=== PATIENT | female | born 1970 | race African-American/Black ===

== ENCOUNTER 2020-03-14 03:13 | Inpatient (IN) | payer MEDICARE ==
[~2020-03-14] VITALS: Ht 160 cm; Wt 86.6 kg
--- NOTE | 2020-03-14 03:20 | NUR ---
PT BIBRA C/O MIDEPIGASTRIC PAIN X1 DAY. PT ALSO C/O NAUSEA AND VOMITTING, CONSTANTLY DRY HEAVING. PT AAOX4, APPEARS UNCOMFORTABLE. RESPIRATIONS EVEN AND UNLABORED. SKIN WARM AND INTACT. NO ACUTE DISTRESS NOTED AT THIS TIME. PLACED IN GOWN AND ON MONITOR, WILL CONTINUE TO MONITOR
[2020-03-14] MEDS ORDERED: IV NS 0.9% 1,000 ML BAG IV ONE (03:30)
[2020-03-14] MEDS ORDERED: ONDANSETRON HCL/PF 4 MG/2 ML VIAL ONE ×2 (03:30→04:34)
[2020-03-14] MEDS ORDERED: MORPHINE SULFATE INJ 4 MG/ML DISP.SYRIN ONE (03:30)
[2020-03-14] MEDS ORDERED: ONDANSETRON HCL/PF 4 MG/2 ML VIAL IVP ONE (03:30)
[2020-03-14] MEDS ORDERED: MORPHINE SULFATE INJ 2 MG/ML DISP.SYRIN IV ONE (03:30)
--- NOTE | 2020-03-14 03:35 | NUR ---
IV INITIATED RAC 18G. LABS DRAWN FROM SITE. WINDOW CLERK AT BEDSIDE FOR COLLECTION. IV INTACT AND PATENT, PLACED ON SALINE LOCK
[2020-03-14 04:01] LABS: BASOPHILS # (AUTO) 0.1 /CMM (0.0-0.2); BASOPHILS % (AUTO) 0.4 % (0.0-2.0); EOSINOPHILS % (AUTO) 0.1 % (0.0-6.0); HEMATOCRIT 39 % (33-45); LYMPHOCYTES % (AUTO) 4.6 % (20.0-44.0); MEAN CORPUSCULAR HGB CONC 34 g/dl (31.0-36.0); MEAN CORPUSCULAR VOLUME 95 fL (82-100); MONOCYTES # (AUTO) 0.3 /CMM (0.1-1.30); MONOCYTES % (AUTO) 1.3 % (2.0-12.0); NEUTROPHILS # (AUTO) 20.6 /CMM (1.8-8.9); NEUTROPHILS % (AUTO) 93.6 % (43.0-81.0); PLATELET COUNT (AUTO) 293 /CMM (150-450); RED BLOOD CELL COUNT(AUTO) 4.03 MIL/uL (4.0-5.2)
[2020-03-14 04:06] LABS: CALCIUM, SERUM 9.5 mg/dL (8.5-10.1); CARBON DIOXIDE 23 mmol/L (21-32); CHLORIDE 101 mmol/L (98-107); GLUCOSE 152 mg/dL (74-106); POTASSIUM 3.4 mmol/L (3.5-5.1); SODIUM SERUM 141 mmol/L (136-145); UREA NITROGEN, BLOOD 13 mg/dL (7-18)
--- NOTE | 2020-03-14 04:06 | NUR ---
PT UNABLE TO PROVIDE URINE SAMPLE AT THIS TIME. MD MIDDLETON
[2020-03-14 04:12] LABS: ALANINE AMINOTRANSFERASE 23 U/L (12-78); ALKALINE PHOSPHATASE 59 U/L (46-116); ASPARTATE AMINOTRANSFERASE 18 U/L (15-37); BILIRUBIN,DIRECT 0.2 mg/dL (0.0-0.2); BILIRUBIN,TOTAL 0.6 mg/dL (0.2-1.0); TOTAL PROTEIN, SERUM 9.1 g/dL (6.4-8.2)
--- NOTE | 2020-03-14 04:17 | NUR ---
ULTRASOUND AT BEDSIDE
[2020-03-14 04:22] LABS: ALBUMIN 4.6 g/dL (3.4-5.0); LIPASE 29 U/L (73-393)
[2020-03-14] MEDS ORDERED: DICYCLOMINE HCL INJ 20 MG/2 ML AMPUL IM ONE ×2 (04:34→05:00)
--- NOTE | 2020-03-14 04:40 | NUR ---
PT UNABLE TO PROVIDE URINE SAMPLE AT THIS TIME. AWARE. PT SIGNED WAIVER, PLACED IN PT CHART
--- NOTE | 2020-03-14 04:43 | NUR ---
PT BROUGHT BY RADIOLOGY TO CT
[2020-03-14] MEDS ORDERED: ONDANSETRON HCL/PF 4 MG/2 ML VIAL IV ONE (05:00)
--- NOTE | 2020-03-14 05:06 | NUR ---
URINE COLLECTED. CALLED LAB FOR CLEANING AND WASHING EQUIPMENT OPERATOR
[2020-03-14] MEDS ORDERED: METOCLOPRAMIDE HCL 10 MG/2 ML VIAL ONE (05:29)
[2020-03-14] MEDS ORDERED: METOCLOPRAMIDE HCL 10 MG/2 ML VIAL IV ONE (05:30)
[2020-03-14 05:38] LABS: APPEARANCE,URINE CLEAR (CLEAR); BILIRUBIN,URINE NEGATIVE (NEGATIVE); BLOOD, URINE LARGE Ery/uL (NEGATIVE); COLOR,URINE YELLOW (YELLOW); KETONES,URINE 40 (NEGATIVE); LEUKOCYTE ESTERASE ,URINE NEGATIVE (NEGATIVE); NITRITE, URINE NEGATIVE (NEGATIVE); PH,URINE 5.5 (5.0-8.0); PROTEIN,URINE 30 mg/dl (NEGATIVE); UGLUCOSE NEGATIVE (NEGATIVE); UROBILINOGEN,URINE 0.2 EU/dL (0.2)
[2020-03-14] MEDS ORDERED: IV D5/0.45 NACL 1,000 ML IV PRN (05:43)
--- NOTE | 2020-03-14 05:43 | NUR ---
COVID SWAB COLLECTED AND SENT TO LAB
[2020-03-14] MEDS ORDERED: Z GUARD REMEDY 2 OZ OINT TP PRN (06:00)
[2020-03-14] MEDS ORDERED: ACETAMINOPHEN 650 MG/SUPP.RECT RC PRN (06:00)
[2020-03-14] MEDS ORDERED: ONDANSETRON HCL/PF 4 MG/2 ML VIAL IVP PRN (06:00)
[2020-03-14 06:06] LABS: MUCUS,URINE Moderate /LPF (None Seen); SQUAMOUS EPITHELIAL CELL,UR Moderate /HPF (None Seen); WBC,URINE 0-2 /HPF (0-3)
[2020-03-14 06:07] LABS: BACTERIA,URINE Rare /HPF (None Seen)
--- NOTE | 2020-03-14 06:30 | NUR ---
REPORT GIVEN TO JAUN HARTMAN FOR [facility]
--- NOTE | 2020-03-14 06:54 | NUR ---
[facility]
[2020-03-14 07:15] VITALS: BP 138/75
[2020-03-14] MEDS: POTASSIUM CL. PREMIX PERIPHER. 50 ML IV SCH ×2 (07:45→09:37)
--- NOTE | 2020-03-14 07:50 | NUR ---
MS RN ADMITTING NOTES PATIENT ADMITTED TO UNIT VIA [facility] @ 0700 ACCOMPANIED BY Keenan LAUGHLIN. PT ABLE TO WALKED FROM [facility] TO HER BED. PT IS A/O X 4. ABLE TO MAKE NEEDS KNOWN, VERBALIZED THAT ABDOMINAL PAIN AT THIS TIME IS TOLERABLE. STILL FEELING WITH MILD NAUSEA BUT SHE SAID THAT SHE DOESN'T NEED MEDICATION AT THIS TIME. PT NPO PER MD ORDER. PT ORIENTED TO STAFF AND ROOM. V/S TAKEN AND RECORDED. ON ROOM AIR, BREATHING EVEN AND UNLABORED. PHYSICAL ASSESSMENT DONE. ABDOMEN SOFT, NON DISTENDED WITH + BOWEL SOUNDS, LUNGS CLEAR ON AUSCULTATION. SKIN IS INTACT. ROM ON FOUR EXTREMITIES INTACT. IV ACCESS NOTED ON RAC INTACT, PATENT AND FLUSHES WELL, IVF OF D5 1/2 NS AT 100ML/HR STARTED. BED PLACED IN LOWEST LOCKED POSITION W/ SR UP X2. CALL LIGHT PLACED WITHIN EASY REACH OF PT. WILL CONTINUE TO MONITOR PT ACCORDINGLY.
[2020-03-14 08:00] VITALS: BP 142/75
[2020-03-14] MEDS ORDERED: CHOL200010 MT (08:19)
[2020-03-14] MEDS ORDERED: ALBU90AE INH (08:19)
[2020-03-14] MEDS ORDERED: GLUC100017 PO (08:19)
[2020-03-14] MEDS ORDERED: AMOX1TAB16 MT (08:19)
[2020-03-14] MEDS ORDERED: LATA2.5D7 EACHEYE (08:19)
[2020-03-14] MEDS ORDERED: LEVO100T9 MT (08:19)
[2020-03-14] MEDS ORDERED: GABA300C PO (08:19)
[2020-03-14] MEDS ORDERED: HYDR-500 MT (08:19)
[2020-03-14] MEDS ORDERED: DICL100G34 TP (08:19)
[2020-03-14] MEDS ORDERED: PANTOPRAZOLE 40 MG VIAL IV SCH (09:00)
--- NOTE | 2020-03-14 09:53 | NUR ---
RN NOTES PATIENT W/ COMPLAINT OF NAUSEA BUT NO VOMITING. REQUESTED FOR MEDICATION FOR NAUSEA. ZOFRAN IV GIVEN TO PATIENT.
--- NOTE | 2020-03-14 12:43 | NUR ---
RN NOTES PT NOTED WITH LOW LEVEL POTASSIUM 3.4 TODAY, ADMINISTERED 10MEQ IV X2 DOSES ORDERED. WILL CONTINUE TO MONITOR.
[2020-03-14] MEDS ORDERED: PANT40TA2 PO (14:13)
[2020-03-14 16:00] VITALS: BP 114/69
--- NOTE | 2020-03-14 17:35 | NUR ---
RN DISCHARGED NOTES PT DISCHARGED HOME IN STABLE CONDITION. A/O X4, SAME ABLE TO MAKE NEEDS KNOWN. AMBULATORY WITH STEADY GAIT. ABLE TO TOLERATE CLEAR LIQUIDS GIVEN TO HER WITH NO C/O ABDOMINAL PAIN AND N/V. V/S TAKEN , STABLE AND RECORDED. SKIN IS INTACT. ALL BELONGINGS ACCOUNTED FOR AND FORM SIGNED. IV ACCESS REMOVED WITH NO BLEEDING NOTED THEN APPLIED DRY DRESSING AT SITE. NAME ARMBAND REMOVED. HEALTH TEACHINGS/DISCHARGED INSTRUCTIONS GIVEN TO PT AND SHE VERBALIZED UNDERSTANDING. PRESCRIPTION OF ORAL PROTONIX TAB HANDED TO PT. PT LEFT UNIT @ 1725 VIA WHEELCHAIR ACCOMPANIED BY ME TO THE LOBBY. DAUGHTER SILVESTRE IN THE LOBBY TO TAKE PT HOME. MD AND CHARGE NURSE AWARE OF DISCHARGE.
== END 2020-03-14 17:25 | disposition home or self-care (01) | DRG 918 ==
LOC: ER 03:18 → MED 06:43
DX: T61.771A Other fish poisoning, accidental (unintentional), initial encounter (principal); E87.6 Hypokalemia; K21.9 Gastro-esophageal reflux disease without esophagitis; E03.9 Hypothyroidism, unspecified; Z90.49 Acquired absence of other specified parts of digestive tract; D72.829 Elevated white blood cell count, unspecified; Y92.009 Unspecified place in unspecified non-institutional (private) residence as the place of occurrence of the external cause
CPT/HCPCS: 36415; 71045-TC; 76705-TC; 80048-TC; 80076-TC; 81000-TC; 83690-TC; 84484-TC; 84703-TC; 85025-TC; 85730-TC; 87081-TC; C9113; C9803-CS; G0378; J0500; J2270; J2405; J2765; J3480; J3490; J7030

== ENCOUNTER 2020-12-11 09:39 | Emergency (ER) | payer MEDICARE ==
[~2020-12-11] VITALS: Ht 160 cm; Wt 86.2 kg
[~2020-12-11 09:39] MED LIST: ALBU90AE INH; CHOL200010 MT; GABA300C PO; GLUC100017 PO; LATA2.5D15 EACHEYE; LEVO100T9 MT; PANT40TA2 PO
[2020-12-11 10:37] LABS: BASOPHILS # (AUTO) 0.1 /CMM (0.0-0.2); BASOPHILS % (AUTO) 0.4 % (0.0-2.0); EOSINOPHILS % (AUTO) 0.1 % (0.0-6.0); HEMATOCRIT 40 % (33-45); HEMOGLOBIN 13.5 g/dL (11.5-14.8); LYMPHOCYTES # (AUTO) 1.6 /CMM (0.8-4.8); MEAN CORPUSCULAR HGB CONC 33 g/dl (31.0-36.0); MEAN CORPUSCULAR VOLUME 95 fL (82-100); MONOCYTES # (AUTO) 0.5 /CMM (0.1-1.30); MONOCYTES % (AUTO) 2.9 % (2.0-12.0); NEUTROPHILS # (AUTO) 13.7 /CMM (1.8-8.9); NEUTROPHILS % (AUTO) 86.6 % (43.0-81.0); PLATELET COUNT (AUTO) 298 /CMM (150-450); RED BLOOD CELL COUNT(AUTO) 4.27 MIL/uL (4.0-5.2); WHITE BLOOD COUNT (AUTO) 15.9 K/uL (4.3-11.0)
--- NOTE | 2020-12-11 10:39 | NUR ---
50 years old female alert, oriented x4 presents to er by ambulance with nausea, vomiting lab drawn urine collected result pending.
[2020-12-11 10:44] LABS: BILIRUBIN,URINE MODERATE (NEGATIVE); COLOR,URINE YELLOW (YELLOW); LEUKOCYTE ESTERASE ,URINE Negative (NEGATIVE); NITRITE, URINE Negative (NEGATIVE); PH,URINE 5.5 (5.0-8.0); PROTEIN,URINE >=300 mg/dl (NEGATIVE); UGLUCOSE Negative (NEGATIVE); UROBILINOGEN,URINE 0.2 EU/dL (0.2)
[2020-12-11 10:44] LABS: CALCIUM, SERUM 9.8 mg/dL (8.5-10.1); CARBON DIOXIDE 24 mmol/L (21-32); CHLORIDE 101 mmol/L (98-107); CREATININE 0.9 mg/dL (0.6-1.3); GLUCOSE 145 mg/dL (74-106); POTASSIUM 3.3 mmol/L (3.5-5.1); SODIUM SERUM 139 mmol/L (136-145); UREA NITROGEN, BLOOD 12 mg/dL (7-18)
[2020-12-11 10:50] LABS: ALANINE AMINOTRANSFERASE 21 U/L (12-78); ALBUMIN 4.7 g/dL (3.4-5.0); ALKALINE PHOSPHATASE 68 U/L (46-116); ASPARTATE AMINOTRANSFERASE 22 U/L (15-37); BILIRUBIN,DIRECT 0.2 mg/dL (0.0-0.2); BILIRUBIN,TOTAL 0.5 mg/dL (0.2-1.0); LIPASE 39 U/L (73-393); TOTAL PROTEIN, SERUM 9.4 g/dL (6.4-8.2)
[2020-12-11] MEDS ORDERED: ONDANSETRON HCL/PF 4 MG/2 ML VIAL ONE (10:58)
[2020-12-11 10:59] LABS: BACTERIA,URINE Moderate /HPF (None Seen); SQUAMOUS EPITHELIAL CELL,UR Moderate /HPF (None Seen)
--- NOTE | 2020-12-11 11:16 | NUR ---
patient went to CT.
[2020-12-11] MEDS ORDERED: MORPHINE SULFATE INJ 4 MG/ML DISP.SYRIN ONE (11:24)
[2020-12-11] MEDS ORDERED: ONDANSETRON HCL/PF - ER 4 MG/2 ML VIAL IV ONE (11:30)
[2020-12-11] MEDS ORDERED: MORPHINE SULFATE INJ 2 MG/ML DISP.SYRIN IV ONE (11:30)
--- NOTE | 2020-12-11 12:50 | NUR ---
PO challenge given tolerated well.
[2020-12-11] MEDS ORDERED: ONDA4TAB11 PO (13:17)
[2020-12-11 13:33] VITALS: BP 132/80
--- NOTE | 2020-12-11 13:34 | NUR ---
condition stable d/c home with instructions after care reviewed with patient she verbalizes understanding left er ambulatory with steady gait denies abdominal pain nausea/vomiting.ER provider talked to patient prior to d/c.
== END 2020-12-11 13:36 | disposition home or self-care (01) ==
LOC: ER 09:42
DX: R11.10 Vomiting, unspecified (principal); N83.202 Unspecified ovarian cyst, left side; N83.201 Unspecified ovarian cyst, right side; E03.9 Hypothyroidism, unspecified; Z88.5 Allergy status to narcotic agent; Z79.899 Other long term (current) drug therapy
CPT/HCPCS: 36415; 74176; 80048; 80076; 81001; 83690; 84484; 85025; 87086; 93005; 96374; 96375; 99285; J2270; J2405 ×2; J7030

== ENCOUNTER → 2022-06-15 | Emergency (ER) | payer MEDICARE ==
[~2022-06-15] VITALS: Ht 160 cm; Wt 75.7 kg
[~2022-06-15] MED LIST changes: +IOHEXOL-300 100 ML VIAL IV ONE; +IV NS 0.9% 250 ML IV ONE; +ONDA4TAB11 PO
--- NOTE | 2022-06-15 09:30 | NUR ---
PHELBOTOMIST AT BEDSIDE
[2022-06-15 09:57] LABS: CALCIUM, SERUM 8.4 mg/dL (8.5-10.1); CREATININE 0.9 mg/dL (0.6-1.3); POTASSIUM 3.8 mmol/L (3.5-5.1)
--- NOTE | 2022-06-15 09:59 | NUR ---
C/O BRIGHT BLODDY STOOL X 1 WEEK, DENIES AB PAIN AND N/V. PT AMBULATED TO BED WITH STEADY GAIT, AAO X4, PLACED IN BED AND MONITOR. KEPT COMFORTABLE, AWAITING MD ORDERS.
[2022-06-15 10:03] LABS: BASOPHILS % (AUTO) 0.3 % (0.0-2.0); EOSINOPHILS % (AUTO) 0.2 % (0.0-6.0); HEMATOCRIT 36 % (33-45); HEMOGLOBIN 12.1 g/dL (11.5-14.8); LYMPHOCYTES # (AUTO) 1.8 K/uL (0.8-4.8); MEAN CORPUSCULAR HGB CONC 33 g/dl (31.0-36.0); MEAN CORPUSCULAR VOLUME 97 fL (82-100); MONOCYTES # (AUTO) 0.8 K/uL (0.1-1.30); MONOCYTES % (AUTO) 9.2 % (2.0-12.0); NEUTROPHILS # (AUTO) 6.2 K/uL (1.8-8.9); NEUTROPHILS % (AUTO) 70.3 % (43.0-81.0); PLATELET COUNT (AUTO) 205 K/uL (150-450); RED BLOOD CELL COUNT(AUTO) 3.74 MIL/uL (4.0-5.2); WHITE BLOOD COUNT (AUTO) 8.8 K/uL (4.3-11.0)
[2022-06-15 10:09] LABS: BILIRUBIN,URINE NEGATIVE (NEGATIVE); COLOR,URINE YELLOW (YELLOW); LEUKOCYTE ESTERASE ,URINE NEGATIVE (NEGATIVE); NITRITE, URINE NEGATIVE (NEGATIVE); PROTEIN,URINE NEGATIVE (NEGATIVE); UGLUCOSE NEGATIVE (NEGATIVE); UROBILINOGEN,URINE 0.2 EU/dL (0.2)
[2022-06-15 10:11] LABS: ALBUMIN 3.7 g/dL (3.4-5.0); BILIRUBIN,DIRECT 0.1 mg/dL (0.0-0.2); BILIRUBIN,TOTAL 0.2 mg/dL (0.2-1.0); TOTAL PROTEIN, SERUM 7.2 g/dL (6.4-8.2)
[2022-06-15 10:42] LABS: BACTERIA,URINE None seen /HPF (None Seen); SQUAMOUS EPITHELIAL CELL,UR None Seen /HPF (None Seen); WBC,URINE NONE SEEN /HPF (0-3)
--- NOTE | 2022-06-15 10:45 | NUR ---
established iv line right ac 20g
--- NOTE | 2022-06-15 12:17 | NUR ---
Patient discharged to home in stable condition. Written and verbal after care instructions given. Patient verbalizes understanding of instruction.
--- NOTE | 2022-06-15 12:17 | NUR ---
IV removed. Catheter intact and site benign. Pressure and 4x4 applied to site. No bleeding noted.
[2022-06-15 12:18] VITALS: BP 133/80
== END | disposition home or self-care (01) ==
LOC: ER 09:07
DX: K57.30 Diverticulosis of large intestine without perforation or abscess without bleeding (principal); K21.9 Gastro-esophageal reflux disease without esophagitis; E03.9 Hypothyroidism, unspecified; Z88.5 Allergy status to narcotic agent; Z60.2 Problems related to living alone
CPT/HCPCS: 99285; 74177; 99406; 85025; 80048; 83690; 80076; 81001; 36415; J7050; Q9967

== ENCOUNTER 2022-08-29 21:17 | Emergency (ER) | payer BC, OTHER ==
[~2022-08-29] VITALS: Ht 160 cm; Wt 75.7 kg
[~2022-08-29 21:17] MED LIST changes: -IOHEXOL-300 100 ML VIAL IV ONE; -IV NS 0.9% 250 ML IV ONE
--- NOTE | 2022-08-29 21:51 | NUR ---
[id number] for N/V/D x few hours. on amoxicillin for sinusitis. placed in bed 6 on monitor . awaiting for jeri clales
--- NOTE | 2022-08-29 22:00 | NUR ---
IV GIAN G20 INSERTED ON LEFT AC. BLOOD DRAWN AND SENT TO LAB
[2022-08-29] MEDS ORDERED: ONDANSETRON HCL/PF 4 MG/2 ML VIAL ONE (22:07)
[2022-08-29] MEDS ORDERED: FAMOTIDINE/PF INJ 20 MG/2 ML VIAL IV ONE ×2 (22:07→22:30)
[2022-08-29] MEDS ORDERED: MORPHINE SULFATE INJ 4 MG/ML DISP.SYRIN ONE (22:12)
[2022-08-29 22:18] LABS: BASOPHILS % (AUTO) 0.1 % (0.0-2.0); EOSINOPHILS % (AUTO) 0.1 % (0.0-6.0); HEMATOCRIT 39 % (33-45); HEMOGLOBIN 12.5 g/dL (11.5-14.8); LYMPHOCYTES # (AUTO) 2.7 K/uL (0.8-4.8); LYMPHOCYTES % (AUTO) 13.3 % (20.0-44.0); MEAN CORPUSCULAR HGB CONC 32 g/dl (31.0-36.0); MEAN CORPUSCULAR VOLUME 98 fL (82-100); MONOCYTES # (AUTO) 1.6 K/uL (0.1-1.30); MONOCYTES % (AUTO) 7.8 % (2.0-12.0); NEUTROPHILS # (AUTO) 16.1 K/uL (1.8-8.9); NEUTROPHILS % (AUTO) 78.7 % (43.0-81.0); PLATELET COUNT (AUTO) 229 K/uL (150-450); RED BLOOD CELL COUNT(AUTO) 3.96 MIL/uL (4.0-5.2); WHITE BLOOD COUNT (AUTO) 20.5 K/uL (4.3-11.0)
[2022-08-29] MEDS ORDERED: IV NS 0.9% 1,000 ML BAG IV ONE (22:30)
[2022-08-29] MEDS ORDERED: MORPHINE SULFATE INJ 2 MG/ML DISP.SYRIN IV ONE (22:30)
[2022-08-29] MEDS ORDERED: ONDANSETRON HCL/PF 4 MG/2 ML VIAL IV ONE (22:30)
[2022-08-29 22:37] LABS: ALBUMIN 4.2 g/dL (3.4-5.0); BILIRUBIN,DIRECT 0.1 mg/dL (0.0-0.2); BILIRUBIN,TOTAL 0.2 mg/dL (0.2-1.0); CALCIUM, SERUM 8.8 mg/dL (8.5-10.1); CREATININE 0.8 mg/dL (0.6-1.3); POTASSIUM 3.2 mmol/L (3.5-5.1)
[2022-08-29] MEDS ORDERED: POTASSIUM CL. PREMIX PERIPHER. 100 ML ONE (23:20)
--- NOTE | 2022-08-29 23:22 | NUR ---
S.K 3.2, 10MEQ/50ML X2 BAGS STARTED ON LEFT AC G20
[2022-08-29] MEDS: POTASSIUM CL. PREMIX PERIPHER. 50 ML IV SCH (23:31)
--- NOTE | 2022-08-30 | NUR ---
CALLED RADIOLOGY DEPT. PT FOR CT SCAN. BUN/CREA RESULTS OUT.
[2022-08-30] MEDS ORDERED: CT SWABBABLE VALVE TRANS SET 1 EA INFUS.SET MC ONE (00:07)
[2022-08-30] MEDS ORDERED: IV NS 0.9% 250 ML IV ONE (00:07)
[2022-08-30] MEDS ORDERED: IOHEXOL-300 100 ML VIAL IV ONE (00:07)
--- NOTE | 2022-08-30 00:19 | NUR ---
BROUGHT PT TO CT DEPT
[2022-08-30] MEDS: POTASSIUM CL. PREMIX PERIPHER. 50 ML IV SCH (00:35)
--- NOTE | 2022-08-30 00:39 | NUR ---
CAME BACK FROM CT DEPT
[2022-08-30] MEDS ORDERED: MORPHINE SULFATE INJ 2 MG/ML DISP.SYRIN IV ONE (01:00)
[2022-08-30] MEDS ORDERED: MORPHINE SULFATE INJ 4 MG/ML DISP.SYRIN ONE (01:03)
[2022-08-30 01:13] LABS: BILIRUBIN,URINE NEGATIVE (NEGATIVE); COLOR,URINE YELLOW (YELLOW); LEUKOCYTE ESTERASE ,URINE NEGATIVE (NEGATIVE); NITRITE, URINE NEGATIVE (NEGATIVE); PROTEIN,URINE NEGATIVE (NEGATIVE); UGLUCOSE NEGATIVE (NEGATIVE); UROBILINOGEN,URINE 0.2 EU/dL (0.2)
[2022-08-30 01:23] LABS: BACTERIA,URINE Rare /HPF (None Seen); SQUAMOUS EPITHELIAL CELL,UR Few /HPF (None Seen); WBC,URINE 0-2 /HPF (0-3)
[2022-08-30 05:06] LABS: BASOPHILS % (AUTO) 0.2 % (0.0-2.0); EOSINOPHILS % (AUTO) 0.1 % (0.0-6.0); HEMATOCRIT 35 % (33-45); HEMOGLOBIN 11.7 g/dL (11.5-14.8); LYMPHOCYTES # (AUTO) 1.5 K/uL (0.8-4.8); MEAN CORPUSCULAR HGB CONC 33 g/dl (31.0-36.0); MEAN CORPUSCULAR VOLUME 97 fL (82-100); MONOCYTES # (AUTO) 0.5 K/uL (0.1-1.30); MONOCYTES % (AUTO) 4.6 % (2.0-12.0); NEUTROPHILS # (AUTO) 8.9 K/uL (1.8-8.9); NEUTROPHILS % (AUTO) 81.1 % (43.0-81.0); PLATELET COUNT (AUTO) 220 K/uL (150-450); RED BLOOD CELL COUNT(AUTO) 3.65 MIL/uL (4.0-5.2)
[2022-08-30] MEDS ORDERED: PANT20TA2 PO (05:23)
[2022-08-30] MEDS ORDERED: ONDA4TAB5 PO (05:23)
[2022-08-30] MEDS ORDERED: ONDANSETRON HCL/PF 4 MG/2 ML VIAL ONE (05:37)
[2022-08-30 05:50] VITALS: BP 101/56
[2022-08-30] MEDS ORDERED: ONDANSETRON HCL/PF 4 MG/2 ML VIAL IV ONE (06:00)
--- NOTE | 2022-08-30 06:13 | NUR ---
Patient discharged to home in stable condition. Written and verbal after care instructions given. Patient verbalizes understanding of instruction.
--- NOTE | 2022-08-30 06:13 | NUR ---
IV GIAN REMOVED
== END 2022-08-30 06:14 | disposition home or self-care (01) ==
LOC: ER 21:18
DX: K52.9 Noninfective gastroenteritis and colitis, unspecified (principal); E87.6 Hypokalemia; R11.2 Nausea with vomiting, unspecified; E03.9 Hypothyroidism, unspecified; K21.9 Gastro-esophageal reflux disease without esophagitis; Z90.49 Acquired absence of other specified parts of digestive tract; Z88.8 Allergy status to other drugs, medicaments and biological substances; Z59.01 Sheltered homelessness; Z79.899 Other long term (current) drug therapy
CPT/HCPCS: 99285; 74177; 96365; 96375 ×2; 96361; 96366; 85025 ×2; 80048; 83690; 80076; 36415 ×2; 96376; 81001; J2270 ×2; J3490; J2405 ×2; J7030 ×2; J3480; A4223; J7050; Q9967

== ENCOUNTER 2023-08-05 09:45 | Emergency (ER) | payer BC, MEDICAID ==
[~2023-08-05] VITALS: Ht 160 cm; Wt 78.0 kg
[~2023-08-05 09:45] MED LIST changes: +ONDA4TAB5 PO; +PANT20TA2 PO
[2023-08-05 12:04] VITALS: BP 136/69; TEMP 98.1; O2SAT 99
[2023-08-05] MEDS ORDERED: LIDOCAINE 1% INJ 50 ML MDV IJ ONE (12:18)
== END 2023-08-05 14:33 | disposition home or self-care (01) ==
LOC: ER 09:45
DX: L03.012 Cellulitis of left finger (principal); R55 Syncope and collapse; E03.9 Hypothyroidism, unspecified; Z79.899 Other long term (current) drug therapy; Z88.5 Allergy status to narcotic agent; Z88.1 Allergy status to other antibiotic agents
CPT/HCPCS: 10060; 99282; J3490; A6403; A6407